=== PATIENT | female | born 1965 | race American Indian/Alaskan Native ===

== ENCOUNTER 2018-02-20 02:25 | Emergency (ER) | payer OTHER ==
--- NOTE | 2018-02-20 05:27 | Emergency Department Report ---
- General Chief Complaint: Upper Respiratory Infection Stated Complaint: STUFFY NOSE Time Seen by Provider: 02/20/18 05:22 Source: patient Mode of arrival: Ambulatory Limitations: No Limitations - History of Present Illness Initial Comments: D2-year-old -[place] female comes in complaining of runny nose, stuffy nose, headache frontal area with thick greenish yellowish sputum. Patient reports she's been suffering from this since Sunday. Patient put she does have a history of sinus. She does report of intermittent shortness of breathing but will use her albuterol inhaler. Patient denies any fever admits to chills denies any nausea no vomiting. She reports the headache is located in the frontal maxillary area. Patient reports she's been taking over-the- counter multi symptom comb medication. She's been using her Flonase and albuterol as needed. MD Complaint: cough, rhinorrhea, nasal congestion - Related Data Previous Rx's Medication Instructions Recorded Last Taken Type Esomeprazole Magnesium [NexIUM 20 mg PO DAILY #30 11/27/14 01/18/15 Rx 24Hr] Fluticasone [Flonase] 1 spray NS QDAY #1 bottle 11/27/14 01/18/15 Rx Hydrochlorothiazide [HCTZ] 25 mg PO QDAY #30 tablet 11/27/14 01/18/15 Rx Acetaminophen/Codeine 1 tab PO Q6H PRN #16 tab 01/19/15 Unknown Rx [Acetaminophen-Codeine #3 TAB] Amoxicillin/K Clav Tab [Augmentin 1 tab PO Q12H #14 tablet 01/19/15 Unknown Rx 875MG] Benzonatate [Tessalon Perle] 100 mg PO TID #15 capsule 02/20/18 Unknown Rx Ibuprofen [Motrin 800 MG tab] 800 mg PO Q8HR PRN #30 tablet 02/20/18 Unknown Rx Sulfamethoxazole/Trimethoprim 1 each PO BID #20 tablet 02/20/18 Unknown Rx [Bactrim Ds Tablet] Allergies Allergy/AdvReac Type Severity Reaction Status Date / Time hydrocodone Allergy Dizziness Verified 01/19/15 05:33 ED Review of Systems ROS: Stated complaint: STUFFY NOSE Other details as noted in HPI Constitutional: chills Eyes: denies: eye pain, eye discharge, vision change ENT: congestion, other (sneezing rhinorrhea nasal congestion). denies: ear pain , throat pain Respiratory: cough (intermittent) Cardiovascular: denies: chest pain, palpitations Endocrine: no symptoms reported Gastrointestinal: denies: abdominal pain, nausea, diarrhea Genitourinary: denies: urgency, dysuria, discharge Musculoskeletal: denies: back pain, joint swelling, arthralgia Skin: denies: rash, lesions Neurological: headache (frontal). denies: weakness, paresthesias Psychiatric: denies: anxiety, depression Hematological/Lymphatic: denies: easy bleeding, easy bruising ED Past Medical Hx - Past Medical History Previous Medical History?: Yes Hx Hypertension: Yes (patient ran of her HCTZ) Hx GERD: Yes Additional medical history: Allergic rhinitis - ran out of her flonase - Surgical History Past Surgical History?: Yes Additional Surgical History: . tubal ligation - Social History Smoking Status: Never Smoker Substance Use Type: None - Medications Home Medications: Home Medications Medication Instructions Recorded Confirmed Last Taken Type Esomeprazole Magnesium [NexIUM 20 mg PO DAILY #30 11/27/14 01/19/15 01/18/15 Rx 24Hr] Fluticasone [Flonase] 1 spray NS QDAY #1 bottle 11/27/14 01/19/15 01/18/15 Rx Hydrochlorothiazide [HCTZ] 25 mg PO QDAY #30 tablet 11/27/14 01/19/15 01/18/15 Rx Acetaminophen/Codeine 1 tab PO Q6H PRN #16 tab 01/19/15 Unknown Rx [Acetaminophen-Codeine #3 TAB] Amoxicillin/K Clav Tab [Augmentin 1 tab PO Q12H #14 tablet 01/19/15 Unknown Rx 875MG] Benzonatate [Tessalon Perle] 100 mg PO TID #15 capsule 02/20/18 Unknown Rx Ibuprofen [Motrin 800 MG tab] 800 mg PO Q8HR PRN #30 tablet 02/20/18 Unknown Rx Sulfamethoxazole/Trimethoprim 1 each PO BID #20 tablet 02/20/18 Unknown Rx [Bactrim Ds Tablet] ED Physical Exam - General Limitations: No Limitations General appearance: alert, in no apparent distress - Head Head exam: Present: atraumatic, normocephalic, other (maxillary tenderness) - Eye Eye exam: Present: normal appearance - ENT ENT exam: Present: mucous membranes dry, TM's normal bilaterally - Neck Neck exam: Present: normal inspection. Absent: lymphadenopathy - Respiratory Respiratory exam: Present: normal lung sounds bilaterally. Absent: respiratory distress - Cardiovascular Cardiovascular Exam: Present: regular rate, normal rhythm. Absent: systolic murmur, diastolic murmur, rubs, gallop - GI/Abdominal GI/Abdominal exam: Present: soft, normal bowel sounds - Extremities Exam Extremities exam: Present: normal inspection - Back Exam Back exam: Present: normal inspection - Neurological Exam Neurological exam: Present: alert, oriented X3 - Psychiatric Psychiatric exam: Present: normal affect, normal mood - Skin Skin exam: Present: warm, dry, intact, normal color. Absent: rash ED Course Vital Signs 02/20/18 02/20/18 03:11 03:39 Temperature 98.9 F 98.9 F Pulse Rate 88 88 Respiratory 18 18 Rate Blood Pressure 161/65 Blood Pressure 161/65 [Right] O2 Sat by Pulse 98 98 Oximetry Critical care attestation.: If time is entered above; I have spent that time in minutes in the direct care of this critically ill patient, excluding procedure time. ED Disposition Clinical Impression: Sinusitis, acute Qualifiers: Sinusitis location: maxillary Recurrence: recurrent Qualified Code(s): J01.01 - Acute recurrent maxillary sinusitis Disposition: - TO HOME OR SELFCARE Is pt being admited?: No Does the pt Need Aspirin: No Condition: Stable Instructions: Sinusitis (ED) Additional Instructions: Please take antibiotics as prescribed. Please start taking Claritin over-the- counter and Afrin nasal spray only at night. Continue with your Flonase during the day. If symptoms persist or gets worse please follow up with her primary care provider Prescriptions: Benzonatate [Tessalon Perle] 100 mg PO TID #15 capsule Ibuprofen [Motrin 800 MG tab] 800 mg PO Q8HR PRN #30 tablet PRN Reason: Pain Sulfamethoxazole/Trimethoprim [Bactrim Ds Tablet] 1 each PO BID #20 tablet Referrals: KAT COX MD [Primary Care Provider] - 3-5 Days Forms: Work/School Release Form(ED), Accompanied Note
[2018-02-20 05:50] VITALS: BP 153/87
== END 2018-02-20 05:37 | disposition home or self-care (01) ==
LOC: ED 02:25
DX: J01.90 Acute sinusitis, unspecified (principal); Z88.5 Allergy status to narcotic agent; I10 Essential (primary) hypertension; K21.9 Gastro-esophageal reflux disease without esophagitis; Z98.51 Tubal ligation status
CPT/HCPCS: 99282

== ENCOUNTER 2022-05-28 12:58 | Emergency (ER) | payer OTHER ==
[2022-05-28 13:58] VITALS: BP 149/103
== END 2022-05-28 18:21 | disposition left against medical advice (07) ==
LOC: ED 12:58
DX: R52 Pain, unspecified (principal); Z53.21 Procedure and treatment not carried out due to patient leaving prior to being seen by health care provider